=== PATIENT | male | born 1950 | race American Indian/Alaskan Native ===

== ENCOUNTER 2020-02-10 09:52 | Day surgery (SDC) | payer MEDICARE ==
[2020-02-09 08:31] LABS: Hematocrit 42.2 % (35.5-45.6); Hemoglobin 14.5 gm/dl (11.8-15.2); Mean Corpuscular HGB Conc 35 % (32-34); Mean Corpuscular Volume 84 fl (84-94); Platelet Count 361 K/mm3 (140-440); Red Blood Count 5.04 M/mm3 (3.65-5.03); Red Cell Distribution Width 14.5 % (13.2-15.2)
[2020-02-09 08:48] LABS: Alanine Aminotransferase 21 units/L (7-56); Albumin 3.9 g/dL (3.9-5); BUN/Creatinine Ratio 12; Blood Urea Nitrogen 11 mg/dL (9-20); Calcium 9.2 mg/dL (8.4-10.2); Hemolysis Index 10
[~2020-02-10 09:52] MED LIST: LACTATED RINGERS 1,000 ML IV SCH; MAGNESIUM OXIDE 400 MG TAB PO SCH
[2020-02-10] MEDS ORDERED: ONDANSETRON 4 MG/2 ML INJ IV PRN (11:11)
[2020-02-10] MEDS ORDERED: HYDROmorphone 1 MG/1 ML INJ IV PRN (11:11)
--- NOTE | 2020-02-10 11:11 | Anesthesia Consultation ---
Anesthesia Consult and Med Hx Date of service: 02/10/20 - Airway Anesthetic Teeth Evaluation: Dentures (upper) ROM Head & Neck: Adequate Mental/Hyoid Distance: Adequate Mallampati Class: Class II Intubation Access Assessment: Probably Good - Pulmonary Exam CTA: Yes - Cardiac Exam Cardiac Exam: RRR - Pre-Operative Health Status ASA Pre-Surgery Classification: ASA3 Proposed Anesthetic Plan: General - Pulmonary Hx Smoking: Yes (quit 20yrs ago) Hx Respiratory Symptoms: No Hx Sleep Apnea: No (HIGH RISK ON TORY PRESCREEN) - Cardiovascular System Hx Hypertension: Yes (took amlodipine this morning, out of clonidine x1 wk) Hx Heart Attack/AMI: No Hx Percutaneous Transluminal Coronary Angioplasty (PTCA): No Hx Cardia Arrhythmia: No - Central Nervous System CVA: No - Gastrointestinal Hx Gastroesophageal Reflux Disease: Yes (well controlled) - Endocrine Hx Renal Disease: No Hx Liver Disease: No Hx Insulin Dependent Diabetes: No Hx Non-Insulin Dependent Diabetes: No Hx Thyroid Disease: No Hx Hypothyroidism: No - Other Systems Hx Obesity: No - Additional Comments Anesthesia Medical History Comments: No hx anesthetic complications.
--- NOTE | 2020-02-10 11:12 | Anesthesia Day of Surgery ---
Anesthesia Day of Surgery - Day of Surgery Patient Examined: Yes Patient H&P Reviewed: Yes Patient is NPO: Yes
[2020-02-10] MEDS: MIDAZOLAM 2 MG/2 ML INJ IV NR ×2 (11:30→11:53)
[2020-02-10] MEDS ORDERED: HYDROmorphone 1 MG/1 ML INJ ONE (12:11)
[2020-02-10] MEDS ORDERED: LIDOCAINE MPF (2%) 20 MG/1 ML VIAL 5 ML ONE (12:12)
[2020-02-10] MEDS ORDERED: propofoL 200 MG/20 ML VIAL IV ONE (12:12)
[2020-02-10] MEDS ORDERED: GENTAMICIN 160 MG in SODIUM CHLORIDE 0.9% 100 ML IV SCH (12:30)
[2020-02-10] MEDS ORDERED: ceFAZolin/Water 2 GM/20 ML 2 GM/20 ML SYRINGE IV NR (13:00)
[2020-02-10] MEDS ORDERED: GENTAMICIN/NS 80 MG/100 ML 100 ML IV SCH (13:00)
[2020-02-10] MEDS ORDERED: ONDANSETRON 4 MG/2 ML INJ ONE (13:10)
--- NOTE | 2020-02-10 13:16 | Post Operative Note ---
Date of procedure: 02/10/20 Pre-op diagnosis: inc psa Post-op diagnosis: same Findings: as above Procedure: cysto pus bx Anesthesia: GETA Surgeon: TEENA BEARDEN Estimated blood loss: none Pathology: list (prostate) Specimen disposition: to lab Condition: stable Disposition: PACU
--- NOTE | 2020-02-10 13:17 | Discharge Summary ---
Short Stay Discharge Plan Activity: other (no straining ) Weight Bearing Status: Full Weight Bearing Diet: low fat, low cholesterol, low salt Special Instructions: other (inc fluids ) Follow up with: PAT HILL MD [Primary Care Provider] - 7 Days TEENA BEARDEN MD [Staff Physician] - 7 Days
--- NOTE | 2020-02-10 13:22 | Operative Report ---
PREOPERATIVE DIAGNOSES: Elevated PSA, benign prostatic hypertrophy. POSTOPERATIVE DIAGNOSES: Elevated PSA, benign prostatic hypertrophy. PROCEDURE: Flexible cystoscopy and prostate ultrasound-guided biopsy. SURGEON: Jerald Louise M.D. ANESTHESIA: General. FINDINGS: This is a gentleman with increased PSA, now presents for prostate biopsy. All risks and implications discussed. DESCRIPTION OF PROCEDURE: The patient was brought to the operating room and placed on the operating table. Following induction of anesthesia, placed in the lithotomy position, prepped and draped in usual sterile fashion. His previous phimosis has resolved. Flexible cystoscopy shows slight narrowing in the penile urethra, which was easily bypassed with the flexible scope. The bladder was not trabeculated, bladder neck was open. No lesions were noted. Prostate measured almost 30 grams on ultrasound. Excellent visualization was achieved. We used Betadine prep on this probe and 12 biopsies were done. The patient tolerated the procedure well and there were no hypoechoic lesions, brought to recovery in stable condition, premedicated with Ancef and gentamicin. JOB# [id number] APOORVA/HERBER
--- NOTE | 2020-02-10 14:24 | XRay Report ---
Single fluoroscopic image submitted Indication: Intraoperative localization Impression: A single image of the abdomen was submitted for documentation purposes with radiology in volvement. Only a hand buffer film was obtained for ultrasound guided transrectal prostate biopsy. Please refer to the operative note for complete details. Fluoroscopic time: 3 seconds Number of fluoroscopic images: 1 Signer Name: Narayan Chapman MD Signed: 02/10/2020 2:19 PM Workstation Name: [id number]
--- NOTE | 2020-02-10 15:32 | Ultrasound Report ---
Limited transrectal Ultrasound HISTORY: ELEVATED PSA. TECHNIQUE: Grayscale and color imaging performed. COMPARISON: None IMPRESSION: Limited ultrasound guidance provided for transrectal prostate biopsy. Please refer to ope rative note for complete details. Prostatic volume was 30 mL. Signer Name: Narayan Chapman MD Signed: 02/10/2020 3:28 PM Workstation Name: [id number]
[2020-02-10 16:56] VITALS: BP 111/70
--- NOTE | 2020-02-10 17:06 | Post Anesthesia Evaluation ---
- Post Anesthesia Evaluation Patient Participated: Yes Airway Patent: Yes Stable Respiratory Function: Yes Nausea/Vomiting: No Temp > 96.8F: Yes Pain Manageable: Yes Adequeate Hydration: Yes Anesthesia Complications: No
== END 2020-02-10 09:53 | disposition home or self-care (01) ==
LOC: OR 09:52
PROVIDERS: ATTEND Urology
DX: R97.20 Elevated prostate specific antigen [PSA] (principal); N40.0 Benign prostatic hyperplasia without lower urinary tract symptoms; Z20.828 Contact with and (suspected) exposure to other viral communicable diseases; E78.00 Pure hypercholesterolemia, unspecified; I10 Essential (primary) hypertension; K21.9 Gastro-esophageal reflux disease without esophagitis; Z88.5 Allergy status to narcotic agent; Z79.82 Long term (current) use of aspirin; Z79.899 Other long term (current) drug therapy; Z87.891 Personal history of nicotine dependence; Z87.440 Personal history of urinary (tract) infections; Z98.890 Other specified postprocedural states
CPT/HCPCS: 36415; 52000; 55700; 74018; 76872; 80053; 85027; 88305; J0690; J1170; J1580; J2250; J2405; J2704; J7120; U0003